=== PATIENT | male | born 1980 | race Caucasian/White ===

== ENCOUNTER 2017-02-10 18:10 | Inpatient (IN) | payer OTHER ==
[~2017-02-10] VITALS: Ht 180.3 cm; Wt 110.2 kg
[~2017-02-10 18:10] MED LIST: ASPIRIN81 MG PO; METFORMIN HYD1000 M1 PO; PRI20 PO; TRICOR145 M1 PO; ZOCOR40 MG PO
[2017-02-10 20:16] LABS: CALCIUM 6.7 mg/dL (8.5-10.1); CARBON DIOXIDE 14.1 mmol/L (21-32); CHLORIDE SERUM 96 mmol/L (98-107); CREATININE SERUM 0.9 mg/dL (0.7-1.3); GFR1 > 60 mL/min; POTASSIUM SERUM 4.8 mmol/L (3.5-5.1); SODIUM SERUM 132 mmol/L (136-145)
[2017-02-10 20:20] LABS: GLUCOSE SERUM 543 mg/dL (74-106)
[2017-02-10 21:38] LABS: PLATELET COUNT 305 x10^3mcL (130-400); RED CELL DISTRIBUTION WIDTH 13.6 % (11.5-14.5)
[2017-02-10 22:18] LABS: PHOSPHOROUS 2.7 mg/dL (2.5-4.9)
[2017-02-10 22:47] LABS: URIC ACID 3.1 mg/dL (3.5-7.2)
[2017-02-10 23:42] VITALS: BP 144/88
[2017-02-10 23:46] VITALS: Ht 180.3 cm; Wt 110.2 kg
[2017-02-11 02:37] LABS: CALCIUM 6.8 mg/dL (8.5-10.1); CARBON DIOXIDE 13.5 mmol/L (21-32); CHLORIDE SERUM 101 mmol/L (98-107); CREATININE SERUM 0.9 mg/dL (0.7-1.3); GFR1 > 60 mL/min; POTASSIUM SERUM 3.6 mmol/L (3.5-5.1); SODIUM SERUM 135 mmol/L (136-145)
[2017-02-11 02:40] LABS: GLUCOSE SERUM 462 mg/dL (74-106)
[2017-02-11 05:57] VITALS: BP 112/71; BP 96/49
[2017-02-11 07:02] LABS: CALCIUM 6.9 mg/dL (8.5-10.1); CARBON DIOXIDE 16.5 mmol/L (21-32); CHLORIDE SERUM 104 mmol/L (98-107); GFR1 > 60 mL/min; GLUCOSE SERUM 318 mg/dL (74-106); MAGNESIUM 1.8 mg/dL (1.8-2.4); PHOSPHOROUS 2.3 mg/dL (2.5-4.9); POTASSIUM SERUM 3.8 mmol/L (3.5-5.1); SODIUM SERUM 137 mmol/L (136-145)
[2017-02-11 07:36] LABS: PLATELET COUNT 306 x10^3mcL (130-400); RED CELL DISTRIBUTION WIDTH 13.7 % (11.5-14.5)
[2017-02-11 07:37] LABS: CREATININE SERUM 0.5 mg/dL (0.7-1.3)
[2017-02-11 10:00] VITALS: BP 123/78
[2017-02-11 12:29] LABS: microscopic required? NO
[2017-02-11 12:36] LABS: urine erythrocyte NEGATIVE (NEGATIVE)
[2017-02-11 12:51] LABS: AMPHETAMINE QUAL UR NONE DETECTED (NEG <=1000)
[2017-02-11 12:55] LABS: CALCIUM 7.9 mg/dL (8.5-10.1); CARBON DIOXIDE 24.2 mmol/L (21-32); CHLORIDE SERUM 100 mmol/L (98-107); CREATININE SERUM 0.7 mg/dL (0.7-1.3); GFR1 > 60 mL/min; GLUCOSE SERUM 279 mg/dL (74-106); POTASSIUM SERUM 3.8 mmol/L (3.5-5.1); SODIUM SERUM 133 mmol/L (136-145)
[2017-02-11 13:19] LABS: BAND NEUTROPHIL 0 % (0-10); BASOPHIL 0 % (0-2); MONOCYTE 7 % (0-7); SEGMENTED NEUTROPHILS 78 % (37-75)
[2017-02-11 13:20] LABS: PLATELET MORPHOLOGY PLATELETS NORMAL; rbc morphology (normal/abnorm) ABNORMAL (NORMAL)
[2017-02-11 13:25] VITALS: BP 137/91
[2017-02-11 17:33] VITALS: BP 123/77
[2017-02-11 17:33] LABS: CALCIUM 8.4 mg/dL (8.5-10.1); CARBON DIOXIDE 24.3 mmol/L (21-32); CHLORIDE SERUM 99 mmol/L (98-107); CREATININE SERUM 0.8 mg/dL (0.7-1.3); GFR1 > 60 mL/min; GLUCOSE SERUM 304 mg/dL (74-106); SODIUM SERUM 131 mmol/L (136-145)
[2017-02-11 19:38] LABS: CARBON DIOXIDE 26 mmol/L (21-32); CHLORIDE SERUM 96 mmol/L (98-107); POTASSIUM SERUM 4.4 mmol/L (3.5-5.1)
[2017-02-11 19:39] LABS: ALBUMIN 4.3 g/dL (3.4-5.0); CALCIUM 8.5 mg/dL (8.5-10.1); CREATININE SERUM 1.1 mg/dL (0.7-1.3); GFR1 > 60 mL/min; GLUCOSE SERUM 435 mg/dL (74-106); TOTAL PROTEIN, SERUM 6.9 g/dL (6.4-8.2)
[2017-02-11 19:40] LABS: ALKALINE PHOSPHATASE 107 U/L (46-116); ALT/SGPT 27 U/L (16-63); AMYLASE 26 U/L (25-115); AST/SGOT 24 U/L (15-37); BILIRUBIN TOTAL 0.6 mg/dL (0.20-1.00); LIPASE 166 IU/L (73-393); MAGNESIUM 2.2 mg/dL (1.8-2.4)
[2017-02-11 19:45] LABS: SODIUM SERUM 137 mmol/L (136-145)
[2017-02-11 21:18] VITALS: BP 122/78
[2017-02-12 06:27] VITALS: BP 117/76
[2017-02-12 06:52] LABS: BASOPHIL % 0.5 % (0-2); RED CELL DISTRIBUTION WIDTH 13.3 % (11.5-14.5)
[2017-02-12 06:55] LABS: PLATELET COUNT 111 x10^3mcL (130-400)
[2017-02-12 07:33] LABS: CALCIUM 7.9 mg/dL (8.5-10.1); CARBON DIOXIDE 25.9 mmol/L (21-32); CHLORIDE SERUM 100 mmol/L (98-107); CREATININE SERUM 0.9 mg/dL (0.7-1.3); GFR1 > 60 mL/min; GLUCOSE SERUM 311 mg/dL (74-106); MAGNESIUM 1.9 mg/dL (1.8-2.4); PHOSPHOROUS 2.9 mg/dL (2.5-4.9); POTASSIUM SERUM 3.9 mmol/L (3.5-5.1); SODIUM SERUM 134 mmol/L (136-145)
[2017-02-12 10:18] VITALS: BP 131/81
[2017-02-12] MEDS ORDERED: LANTUS100 U/ML SC (10:47)
[2017-02-12] MEDS ORDERED: METFORMIN HCL1000 MG PO (10:48)
[2017-02-12] MEDS ORDERED: THERA TABS1 TAB PO (10:48)
[2017-02-12] MEDS ORDERED: LIPI20 PO (10:49)
[2017-02-12] MEDS ORDERED: LOP600 PO (11:24)
== END 2017-02-12 12:01 | disposition home or self-care (01) | DRG 420 ==
LOC: ED 18:10 → DU 21:08
PROVIDERS: Emergency Medicine; ADMIT Family Medicine
DX: E13.10 Other specified diabetes mellitus with ketoacidosis without coma (principal); N17.0 Acute kidney failure with tubular necrosis; D68.69 Other thrombophilia; E83.51 Hypocalcemia; E83.39 Other disorders of phosphorus metabolism; E78.5 Hyperlipidemia, unspecified; E66.9 Obesity, unspecified; E78.00 Pure hypercholesterolemia, unspecified; Z53.29 Procedure and treatment not carried out because of patient's decision for other reasons; D64.9 Anemia, unspecified; I45.10 Unspecified right bundle-branch block; Z79.82 Long term (current) use of aspirin; Z68.34 Body mass index [BMI] 34.0-34.9, adult; Z91.14 Patient's other noncompliance with medication regimen; Z90.49 Acquired absence of other specified parts of digestive tract
CPT/HCPCS: 36600; 82962; 83880; 84439; J1815; J7030; Q0092

== ENCOUNTER 2017-03-06 16:17 | Emergency (ER) | payer OTHER ==
[~2017-03-06] VITALS: Ht 180.3 cm; Wt 112.7 kg
[~2017-03-06 16:17] MED LIST changes: +LANTUS100 U/ML SC; +LIPI20 PO; +LOP600 PO; +METFORMIN HCL1000 MG PO; +THERA TABS1 TAB PO
[2017-03-06 19:41] VITALS: BP 105/72
== END 2017-03-06 19:52 | disposition home or self-care (01) ==
LOC: ED 16:17
DX: B34.9 Viral infection, unspecified (principal); E11.9 Type 2 diabetes mellitus without complications; Z79.4 Long term (current) use of insulin; Z79.84 Long term (current) use of oral hypoglycemic drugs

== ENCOUNTER 2018-03-20 20:36 | Emergency (ER) | payer OTHER ==
[~2018-03-20] VITALS: Ht 180.3 cm; Wt 121.1 kg
[2018-03-20 20:40] VITALS: Ht 180.3 cm; Wt 121.1 kg
[2018-03-20] MEDS ORDERED: SENSIPAR30 M1 PO (22:52)
[2018-03-20 23:27] VITALS: BP 118/61
== END 2018-03-20 23:27 | disposition home or self-care (01) ==
LOC: ED 20:36
DX: N39.0 Urinary tract infection, site not specified (principal); E86.0 Dehydration; E11.9 Type 2 diabetes mellitus without complications; Z90.49 Acquired absence of other specified parts of digestive tract
CPT/HCPCS: 82962; J1885; J7030

== ENCOUNTER 2020-02-16 09:02 | Emergency (ER) | payer OTHER ==
[~2020-02-16] VITALS: Ht 180.3 cm; Wt 116.6 kg
[~2020-02-16 09:02] MED LIST changes: +SENSIPAR30 M1 PO
[2020-02-16 09:11] VITALS: Ht 180.3 cm; Wt 116.6 kg
[2020-02-16 10:50] VITALS: BP 136/95
== END 2020-02-16 10:50 | disposition home or self-care (01) ==
LOC: ED 09:02
DX: K12.2 Cellulitis and abscess of mouth (principal); E78.00 Pure hypercholesterolemia, unspecified; E11.9 Type 2 diabetes mellitus without complications
CPT/HCPCS: J0696; J1100